=== PATIENT | female | born 1985 | race Caucasian/White ===

== ENCOUNTER → 2018-07-04 | Outpatient (CLI) | payer OTHER ==
--- NOTE | 2018-07-05 06:13 | SPLIT NIGHT TECHNICIAN REPORT ---
[facility] Split Night Polysomnogram - Theology Teacher Report Study date: 07/04/2018 Referring Physician: Zhou Alanis MD Name: CHIQUITA HOPKINS Theology Teacher: DUKE Arnold. Date of : 1985 Height: 32 years, Height 5' 4" Sex: Female Weight: 518 lbs Age: 32 BMI: Medications: 88.9 NONE REPORTED Patient History 32 yr-old female here for a baseline/modified split study (CPAP to be introduced if AHI exceeds 15). She has had previous sleep testing. She was placed on CPAP in 2012 but would take the mask off unknowingly in the middle of the night. She did not meet usage requirements, and the machine was taken away. She is back to assess her MIRTA and be restarted on CPAP. Her [place] scale is 14. The test was started on room air. ETCO2 testing is included in this study. Room 3 Parameters Monitored NPSG: E1-M2, E2-M1, Fp1-M2, Fp2-M1, F3-M2, F4-M2, F4-M1, C3-M2, C4-M2, C4-M1, O1-M2, O2-M2, O2-M1, T3-M2, T4-M1, P3-M2, P4-M1, CHIN1, CHIN2, HR, EKG, Legs, PFLOW, SNOR, FLOW, CFLOW, Tidal Volume, THOR, ABDO, SpO2, PLTH, CPRESS, ETCO2 Wave, ETCO2, pH SLEEP SUMMARY DATA DIAGNOSTIC TREATMENT Lights Out: 10:07:21 PM 12:51:51 AM Lights On: 12:41:21 AM 5:38:51 AM Total Recording Time (TRT): 154.0 min. 287.0 min. Total Sleep Time (TST): 132.0 min. 259.0 min. NREM Time: 132.0 min. 206.0 min. REM Time: 0.0 min. 53.0 min. Sleep Period Time (SPT): 146.5 min. 282.5 min. Sleep Efficiency (SE): 86 % 90 % Sleep Latency: 7.5 min. 4.5 min. Arousal Index: 76.8 13.9 PAP Treatment Levels: 4, 6, 8, 10, 12, 14, 20/16, 22/17, 23/17 * Optimal Pressure(s) SLEEP STAGING DATA DIAGNOSTIC TREATMENT Duration (min) TST % Duration (min) TST % Stage Wake: 22.0 min. -- 28.0 min. -- WASO: 14.5 min. -- 23.5 min. -- NREM: 132.0 min. 100 % 206.0 min. 80 % Stage N1: 66.0 min. 50 % 70.5 min. 27 % Stage N2: 66.0 min. 50 % 111.5 min. 43 % Stage N3: 0.0 min. 0 % 24.0 min. 9 % REM: 0.0 min. 0 % 53.0 min. 20 % POSITIONAL DATA Event Count Index Event Count Index Supine: N/A N/A 16 33.1 Supine NREM: N/A N/A 16 33.1 Supine REM: N/A N/A N/A N/A Non-Supine: 382 173.6 230 59.5 Non-Supine NREM: 382 173.6 216 72.9 Non-Supine REM: N/A N/A 14 14.7 AROUSAL SUMMARY DATA: Event Count Index Event Count Index Apnea Arousals: 32 40.5 5 6.3 Hypopnea Arousals: 97 44.1 26 6.0 Snore Arousals: 26 11.8 8 1.9 PLM Arousals: 1 0.5 0 0.0 Non-Specific Arousals: 14 6.4 19 4.4 Total Arousals: 169 76.8 60 13.9 MYOCLONUS (PLM) Event Count Index Event Count Index PLM: 2 0.9 0 0.0 PLM AROUSAL: 1 0.5 0 0.0 PLM W/O AROUSAL 2 0.9 0 0.0 PLM W/RESP EVENT 0 0.0 0 0.0 MYOCLONUS (PLM) Event Count Index Event Count Index LM: 0 5.0 19 4.4 LM AROUSAL: 0 0.0 1 0.2 LM W/O AROUSAL LM W/RESP EVENT LM NON SPECIFIC 8 3.6 15 3.5 HEART RATE DATA DIAGNOSTIC TREATMENT Sleep (bpm): 94 88 REM (bpm): N/A 87 NREM (bpm): 80 86 Tachycardia Count: 0 0 Tachycardia Duration: 0.00 0 Bradycardia Count: 0 0 Bradycardia Duration: 0.00 0 DIAGNOSTIC PORTION TREATMENT PORTION RESPIRATORY DATA Event Count Index Event Count Index AHI: -- 173.6 -- 56.5 RDI: -- 173.6 -- 57 Obstructive Apnea: 89 40.5 27 6.3 Central Apnea: 0 0.0 0 0.0 Mixed Apnea: 0 0.0 0 0.0 Hypopnea: 293 133.2 217 50.3 RERA: 0 0.0 2 0.5 Total Apneas: 89 40.5 27 6.3 RESPIRATORY DATA REM NREM SLEEP REM NREM SLEEP Supine Position: Obstructive Apneas: N/A N/A N/A N/A 1 1 Central Apneas: N/A N/A N/A N/A 0 0 Mixed Apneas: N/A N/A N/A N/A 0 0 Hypopneas: N/A N/A N/A N/A 15 15 RERA N/A N/A N/A N/A 0 0 Total Supine Events: N/A N/A N/A N/A 16 16 Supine AHI: N/A N/A N/A N/A 33.1 33.1 Supine RDI: N/A N/A N/A N/A 33.1 33.1 REM NREM SLEEP REM NREM SLEEP Non-Supine Position: Obstructive Apneas: N/A 89 89 4 22 26 Central Apneas: N/A 0 0 0 0 0 Mixed Apneas: N/A 0 0 0 0 0 Hypopneas: N/A 293 293 9 193 202 RERA N/A 0 0 1 1 2 Total Supine Events: N/A 382 382 14 216 230 Supine AHI: N/A 173.6 173.6 14.7 72.9 59.5 Supine RDI: N/A 173.6 173.6 15.8 73.2 60.0 OXYGEN DESTAURATION DATA: Event Count Index Event Count Index REM Desaturations: N/A N/A 20 22.6 NREM Desaturations: 471 214.1 339 98.7 SNORE DATA DIAGNOSTIC TREATMENT Snore Time: 53.4 12:56:21 AM Snore TST%: 21 31 Snore Arousal Count: 26 8 Snore Arousal Index: 11.8 1.9 Desaturation Event Summary: Minimum %SpO2 Event Count Mean/Min/Max Duration(sec.) Desaturation Index % Time In Bed > 90 116 11.4 / 4.0 / 59.8 363.4 4.4 86 - 90 632 11.2 / 4.0 / 59.8 191.9 44.9 81 - 85 393 9.6 / 4.0 / 57.8 174.0 30.8 76 - 80 63 6.5 / 4.0 / 14.0 72.5 11.9 71 - 75 2 4.9 / 4.8 / 5.0 3.7 7.3 66 - 70 0 N/A 0.0 0.7 61 - 65 0 N/A 0.0 0.0 56 - 60 0 N/A 0.0 0.0 51 - 55 0 N/A 0.0 0.0 < 50 0 N/A 0.0 0.0 OXYGEN SATURATION DATA DIAGNOSTIC TREATMENT SpO2 Mean Sleep: 80 % 86 % SpO2 Mean REM: N/A % 87 % SpO2 Mean NREM: 80 % 86 % SpO2 Minimum Sleep: 67 % 73 % SpO2 Minimum REM: N/A % 77 % SpO2 Minimum NREM: 67 % 73 % Time Below 90% (TST): 129.7 228.9 Time Below 88% (TST): 119.9 172.1 Total REM NREM Awake <50% 0.0 min. 0.0 min. 0.0 min. 0.0 min. 51 - 60% 0.0 min. 0.0 min. 0.0 min. 0.0 min. 61 - 70% 3.3 min. 0.0 min. 3.3 min. 0.0 min. 71 - 80% 84.5 min. 1.9 min. 81.2 min. 1.3 min. 81 - 90% 333.1 min. 47.5 min. 240.8 min. 44.8 min. 91 - 100% 19.2 min. 3.5 min. 11.9 min. 3.7 min. Average 84 87 83 87 Minimum SpO2 67 77 67 71 Desaturation Event Index 121.2 22.6 143.8 75.6 # Desat. Events below 89% 880 20 801 59 Time(%) with Saturation below 89% 83.6 8.9 66.8 7.8 Time(min.) with Saturation below 89% 367.9 39.3 294.2 34.4 Recording Theology Teacher Comments: Ms. Hopkins slept in the right, left, and supine positions. No cardiac arrhythmias or PLMs noted. No bruxism noted. Snoring was noted and scored as a 5 on a scale of 1 through 5. (0=no snoring, 5=snoring loud enough to be heard through a closed door or down the [address] way). At 12:50 am, she met specific Split-Night criteria during the diagnostic portion of this study. CPAP was initiated at +4 CMH2O and up-titrated to a level of +14 CMH2O, Cflex 2. She continued to have apneas and hypopneas, so she was switched to BiPAP at +20/16 CMH2O and up-titrated to a level of +23/17 CMH2O. A Mirage FX Soft edge nasal mask size small from [employer] was used during titration. She initially used nasal pillows, but they would leak and not stay on her head correctly. She did not wake up to use the restroom during the night. Ms. Spivey stated that she slept about the same as usual before the mask started to annoy her. The final report will be interpreted and signed by a sleep physician. The completed physician report will then be placed in the patient medical record. Therapy Event: Therapy (cm H20) 0 4 6 8 10 12 14 20/16 22/17 23/17 Total Time at Pressure (min.) 154.0 23.4 26.8 15.0 20.9 15.0 50.0 69.9 26.7 39.5 TST at Pressure (min.) 132.0 11.9 18.3 12.5 19.4 14.5 48.0 69.9 25.7 39.0 # Periods 1 1 1 1 1 1 1 1 1 1 Sleep Onset (min.) 7.5 4.5 0.0 0.0 0.0 0.0 0.0 0.0 0.0 0.0 REM Onset (min.) N/A N/A N/A N/A N/A N/A N/A 33.0 0.0 N/A Sleep Efficiency % 85 50 68 83 92 96 96 100 96 98 Wakefulness (%) 14.3 49.2 31.7 16.6 7.2 3.3 4.0 0.0 3.8 1.3 Wakefulness (min.) 22.0 11.5 8.5 2.5 1.5 0.5 2.0 0.0 1.0 0.5 NREM 1 (%) 42.9 50.8 68.3 65.4 53.1 29.6 16.0 0.0 20.8 3.7 NREM 1 (min.) 66.0 11.9 18.3 9.8 11.1 4.4 8.0 0.0 5.5 1.5 NREM 2 (%) 42.9 0.0 0.0 18.0 39.8 67.1 80.0 23.6 15.0 76.0 NREM 2 (min.) 66.0 0.0 0.0 2.7 8.3 10.0 40.0 16.5 4.0 30.0 NREM 3 (%) 0.0 0.0 0.0 0.0 0.0 0.0 0.0 23.6 0.0 19.0 NREM 3 (min.) 0.0 0.0 0.0 0.0 0.0 0.0 0.0 16.5 0.0 7.5 REM (%) 0.0 0.0 0.0 0.0 0.0 0.0 0.0 52.8 60.4 0.0 REM (min.) 0.0 0.0 0.0 0.0 0.0 0.0 0.0 36.9 16.1 0.0 # Arousals 169 1 12 8 12 10 5 4 7 1 Arousal Index 76.8 5.0 39.4 38.3 37.2 41.5 6.3 3.4 16.4 1.5 # Snore 622 173 158 71 72 56 376 745 359 134 Snore Index 282.7 873.4 518.7 339.7 222.9 232.4 470.2 639.7 839.6 206.4 AHI 173.6 75.7 121.5 95.7 130.0 166.0 55.0 15.5 21.0 29.3 AHI Supine N/A N/A N/A N/A N/A N/A N/A N/A N/A 33.1 AHI Non-Supine 173.6 75.7 121.5 95.7 130.0 166.0 55.0 15.5 21.0 18.1 NREM AHI 173.6 75.7 121.5 95.7 130.0 166.0 55.0 14.6 37.7 29.3 REM AHI N/A N/A N/A N/A N/A N/A N/A 16.3 11.2 N/A RDI 173.6 75.7 121.5 95.7 130.0 166.0 56.3 15.5 23.4 29.3 # Obstructive 89 0 1 1 11 0 7 5 1 1 # Central Ap 0 0 0 0 0 0 0 0 0 0 # Mixed 0 0 0 0 0 0 0 0 0 0 # Hypopneas 293 15 36 19 31 40 37 13 8 18 RERAS 0 0 0 0 0 0 1 0 1 0 Total Respiratory Events 382 15 37 20 42 40 45 18 10 19 Time Below SpO2 89.00% (min.) 125.8 11.4 13.6 9.4 16.7 12.6 40.5 55.8 21.2 26.7 Mean NREM SpO2 (%) 80 86 87 86 85 83 85 87 86 87 Mean REM SpO2 (%) N/A N/A N/A N/A N/A N/A N/A 87 85 N/A Mean Sleep SpO2 (%) 80 86 87 86 85 83 85 87 85 87 Min NREM SpO2 (%) 67 79 79 80 73 73 74 80 80 80 Min REM SpO2 (%) N/A N/A N/A N/A N/A N/A N/A 79 77 N/A Position Supine (min.) 0.0 0.0 0.0 0.0 0.0 0.0 0.0 0.0 0.0 29.0 Position Non-supine (min.) 132.0 11.9 18.3 12.5 19.4 14.5 48.0 69.9 25.7 10.0 LM Index Sleep 5.9 0.0 9.8 0.0 6.2 0.0 3.8 5.2 11.7 0.0 LM Index NREM 5.9 0.0 9.8 0.0 6.2 0.0 3.8 0.0 25.1 0.0 LM Index REM N/A N/A N/A N/A N/A N/A N/A 9.8 3.7 N/A Mean Heart Rate (bpm) 94 98 92 91 91 89 89 85 83 86 Min Heart Rate (bpm) 73 87 78 76 72 71 62 68 58 64 CPAP REPORT Therapy Detail Time / Page # Comment CPAP 4 cm H2O Nasal Pillow Mask Flex Pressure Relief Humidifier on 12:50:31 AM / pg. 441 SHE IS MEDICARE, SHE HAS HAD OVER 2 HOURS OF SLEEP TIME AND HER AHI IS WELL ABOVE 15 (PER THE DOCTOR'S ORDER). CPAP 6 cm H2O Full Face Mask Flex Pressure Relief Humidifier on 1:15:14 AM / pg. 490 INCREASED FOR HYPOPNEAS CPAP 6 cm H2O Nasal Mask Flex Pressure Relief Humidifier on 1:23:07 AM / pg. 506 NASAL PILLOWS LEAKING TOO MUCH, CHANGED TO A NASAL COVERAGE MASK CPAP 8 cm H2O Nasal Mask Flex Pressure Relief Humidifier on 1:42:01 AM / pg. 544 INCREASED FOR APNEAS AND HYPOPNEAS CPAP 10 cm H2O Nasal Mask Flex Pressure Relief Humidifier on 1:57:03 AM / pg. 574 INCREASED FOR HYPOPNEAS AND APNEAS CPAP 12 cm H2O Nasal Mask Flex Pressure Relief Humidifier on 2:17:56 AM / pg. 616 INCREASED FOR HYPOPNEAS CPAP 14 cm H2O Nasal Mask Flex Pressure Relief Humidifier on 2:32:53 AM / pg. 646 INCREASED FOR APNEAS AND HYPOPNEAS BiLevel 20/16 cm H2O Nasal Mask Flex Pressure Relief Humidifier on 3:22:52 AM / pg. 746 DUE TO HIGH PRESSURE, CHANGED TO BIPAP. SET EPAP HIGHER AT 16 DUE TO CONTINUED OBSTRUCTIVE APNEAS, AND SET IPAP AT 20 FOR THE 4 CM PRESSURE DIFFERENTIAL BiLevel 22/17 cm H2O Nasal Mask Flex Pressure Relief Humidifier on 4:32:44 AM / pg. 885 INCREASED IPAP FOR HYPOPNEAS AND INCREASED EPAP FOR OBSTRUCTIVE APNEAS BiLevel 23/17 cm H2O Nasal Mask Flex Pressure Relief Humidifier on 4:59:24 AM / pg. 939 INCREASED FOR HYPOPNEAS
--- NOTE | 2018-07-07 11:05 | POLYSOMNOGRAPH REPORT ---
CLINICAL DATA: A 32-year-old female with a markedly elevated BMI with a previous history of sleep apnea on CPAP. She would take off the mask in the middle of night and did not meet usage requirements. Therefore, she lost her CPAP machine. She is willing to start back on CPAP. Her [place] sleepiness score is elevated at 14/24. Her BMI was 89. SLEEP ARCHITECTURE: For the diagnostic portion of the study, sleep period time was 146.5 minutes. Total sleep time was 132 minutes, all non-REM sleep. Sleep latency was 7.5 minutes. Sleep efficiency was 86%. Sleep consisted of stage N1 50% and stage N2 50%. For the treatment portion of the study, sleep period time was 282.5 minutes. Total sleep time was 259 minutes divided between 206 minutes of non-REM sleep and 53 minutes of REM sleep. Sleep latency was 4.5 minutes. Sleep efficiency was 90%. Sleep consisted of stage N1 27%, stage N2 42%, stage N3 9%, and REM 20%. AROUSAL DATA: Prior to treatment, 169 arousals were recorded for an index of 76.8 per hour. During treatment, 60 arousals were recorded for an index of 13.9 per hour. PLM DATA: Prior to treatment, 2 limb movements of sleep were noted for an index of 0.9 per hour. During treatment, 19 limb movements of sleep were noted for an index of 4.4 per hour. EKG: Heart rates ranged from 80 to 94 beats per minute. No arrhythmias were noted. RESPIRATORY DATA: Prior to treatment, very severe sleep apnea/hypopnea was documented. The diagnostic AHI was 173.6. There were 89 obstructive apneic episodes and 293 hypopneic episodes. During treatment, the average AHI was 56.5. There were 27 obstructive apneic episodes and 217 hypopneic episodes. OXIMETRY DATA: Severe hypoxemia was seen prior to treatment. Oxygen arslan was 67% during non-REM sleep prior to treatment. Mean saturation with treatment was 86%. FONDANT COOKER'S COMMENTS AND TREATMENT SUMMARY: The patient slept in the right, left, and supine positions. Snoring was severe, rated 5 on a scale of 1-5. At 12:50 a.m. she met split night criteria. A Mirage FX soft edge nasal mask size small from [employer] was used. The patient was started on CPAP but then required BiPAP. She was eventually titrated up to a final pressure setting of BiPAP 23/17. At her final pressure setting, she slept for 39 minutes with an AHI of 29.3. There was improvement in her hypoxemia, but she still remained hypoxic even on BiPAP. IMPRESSION: Very severe sleep/hypopnea for the diagnostic AHI of 173.6 with severe nocturnal hypoxemia improved on BiPAP 23/17 with persistent hypopnea and hypoxemia. RECOMMENDATIONS: The patient would benefit from use of BiPAP therapy. With the severity of the patient's sleep apnea, sleep medicine consultation for management may be of benefit. Clinical correlation is needed. DELIA
== END | disposition home or self-care (01) ==
LOC: C.NEUR 21:00
PROVIDERS: ATTEND Family Medicine
DX: G47.30 Sleep apnea, unspecified (principal)